=== PATIENT | male | born 2000 | race Two or more races ===

== ENCOUNTER 2025-02-03 09:15 | Outpatient (CLI) | payer MEDICAID ==
[2025-02-03 10:08] LABS: Alanine Aminotransferase 16 U/L (7-40); Alkaline Phosphatase 49 U/L (46-116); Anion Gap 6 (5-15); BUN/Creatinine Ratio 7.1 (10.0-20.0); Calcium 9.2 mg/dL (8.7-10.4); Carbon Dioxide 27 mmol/L (20-31); Hematocrit 39.5 % (41.0-53.0); Hemoglobin 13.2 g/dL (13.5-17.5); Mean Corpuscular Hemoglobin 29.8 pg (28.0-32.0); Mean Corpuscular Volume 89.3 fL (80.0-100.0); Nucleated Red Blood Cells % 0.0 %; Potassium 4.1 mmol/L (3.5-5.1); Sodium 142 mmol/L (136-145); Total Protein 7.0 g/dL (5.7-8.2); Triglycerides 76 mg/dL (< 150)
[2025-02-03 10:09] LABS: Albumin 4.0 g/dL (3.2-4.8); Bilirubin, Total 0.7 mg/dL (0.2-1.0); Cholesterol 187 mg/dL (< 200); HDL Cholesterol 46 mg/dL (40-59)
[2025-02-03 10:13] LABS: Blood Urea Nitrogen 6 mg/dL (9-23); Chloride 109 mmol/L (98-107); Glucose 74 mg/dL (74-106)
[2025-02-04 12:07] LABS: Anti-Nuclear Antibody Direct Positive (Negative); Anti-dsDNA Antibody 1 IU/mL (0-9); Antiscleroderma-70 Antibody <0.2 AI (0.0-0.9); Sjogren's Anti-SS-A Antibody 6.1 AI (0.0-0.9); Sjogren's Anti-SS-B Antibody 0.3 AI (0.0-0.9)
== END 2025-02-03 17:00 | disposition home or self-care (01) ==
LOC: LAB 09:15
PROVIDERS: ATTEND Internal Medicine
DX: M79.676 Pain in unspecified toe(s) (principal); Z00.00 Encounter for general adult medical examination without abnormal findings
CPT/HCPCS: 36415; 80053; 80061; 82607; 83036; 84443; 85025; 86160; 86225; 86235; 86376; 86431